=== PATIENT | male | born 1965 | race Caucasian/White ===

== ENCOUNTER → 2017-01-10 | Outpatient (CLI) | payer OTHER ==
[~2017-01-10] MED LIST: AMOXICILLIN 50500 MG PO; AUGMENTIN 875 M1 TAB PO; FLEXERIL 1010 MG/TAB PO; HYDROCODONE BIT1 T13 PO; LORTAB 5/500 501 TAB PO; MOTRIN 800800 MG/TAB PO; NAPROSYN500 MG PO; NO HOME MEDICATIONS; NORCO 325 MG-51 TAB PO; NORCO 325 MG-7.1 TAB PO; NORCO PO; PCN; PHENERGAN 25 TA25 MG PO; ULTRAM 50MG TAB50 MG PO; ZOFRAN 4MG T4 MG/TAB PO
== END ==
LOC: COL.RAD 14:29
DX: M19.011 Primary osteoarthritis, right shoulder (principal); M75.111 Incomplete rotator cuff tear or rupture of right shoulder, not specified as traumatic; M75.21 Bicipital tendinitis, right shoulder

== ENCOUNTER 2017-11-09 14:20 | Emergency (ER) | payer OTHER ==
[~2017-11-09] VITALS: Ht 195.6 cm; Wt 97.7 kg
[2017-11-09 14:24] VITALS: TEMP 97
[2017-11-09 15:18] LABS: BASO # 0.1 (0.0-0.2); BASO % 0.6 % (0.0-2.0); EOS # 0.2 (0.0-0.7); EOS % 1.3 % (0-4.0); GRAN # 9.2 (1.4-6.5); GRAN % 80.2 % (42.2-75.2); HEMATOCRIT 39.4 % (42.0-52.0); HEMOGLOBIN 13.4 g/dl (13.5-18.0); LYMPH # 1.3 (1.2-3.4); LYMPH % 11.3 % (20.0-51.0); MEAN CELL VOLUME 89 fl (80.0-100.0); MEAN CORPUSCULAR HEMOGLOBIN 30 pg (27.0-31.0); MEAN CORPUSCULAR HGB CONC 34 g/dl (33.0-37.0); MEAN PLATELET VOLUME 10.5 fl (7.4-10.4); MONO # 0.7 (0.1-0.6); MONO % 6.3 % (1.7-9.3); PLATELET COUNT 299 K/mm3 (130-400); RED BLOOD COUNT 4.41 M/mm3 (4.20-5.60); REDCELL DISTRIBUTION WIDTH-CV 13.1 % (11.5-14.5)
[2017-11-09 15:28] LABS: BILIRUBIN,TOTAL 0.7 mg/dL (0.0-1.0); CALCIUM 8.7 mg/dL (8.4-10.2); CREATININE, serum 0.72 mg/dL (0.66-1.25); POTASSIUM 4.2 mmol/L (3.4-5.0); TOTAL PROTEIN 7.2 gm/dL (6.4-8.2)
[2017-11-09 16:21] VITALS: BP 129/90; PULSE 77
== END 2017-11-09 16:26 | disposition home or self-care (01) ==
LOC: COL.ER 14:20
PROVIDERS: Physician Assistant
DX: R51 Headache (principal); Z98.890 Other specified postprocedural states
CPT/HCPCS: J1170; J1885; J2405; J7030

== ENCOUNTER 2022-03-01 18:28 | Emergency (ER) | payer SELFPAY ==
[~2022-03-01] VITALS: Ht 190.5 cm; Wt 90.9 kg
[~2022-03-01 18:28] MED LIST changes: +CEPHALEXIN500 M1 PO
[2022-03-01 18:42] VITALS: BP 111/73; TEMP 97.8
[2022-03-01 19:04] VITALS: PULSE 103
[2022-10-03] MEDS ORDERED: MOBIC 7.5MG7.5 MG PO (19:53)
[2022-10-03] MEDS ORDERED: ATARAX50 MG PO (19:53)
== END 2022-03-01 19:05 | disposition home or self-care (01) ==
LOC: COL.ER 18:28
DX: Z46.6 Encounter for fitting and adjustment of urinary device (principal); Z28.310 Unvaccinated for COVID-19

== ENCOUNTER 2023-05-15 11:57 | Emergency (ER) | payer SELFPAY ==
[~2023-05-15] VITALS: Ht 190.5 cm; Wt 90.9 kg
[~2023-05-15 11:57] MED LIST changes: +ATARAX50 MG PO; +MOBIC 7.5MG7.5 MG PO
[2023-05-15 12:12] VITALS: BP 133/81; TEMP 97.9
[2023-05-15] MEDS ORDERED: Ketorolac 60 MG/2 ML VIAL IM ONE (12:45)
[2023-05-15 12:58] VITALS: PULSE 88
[2023-05-16] MEDS ORDERED: FLEXERIL 1010 MG/TAB PO (20:43)
== END 2023-05-15 12:58 | disposition home or self-care (01) ==
LOC: COL.ER 11:57
DX: R51.9 Headache, unspecified (principal)
CPT/HCPCS: J1885

== ENCOUNTER 2023-05-16 18:14 | Emergency (ER) | payer SELFPAY ==
[~2023-05-16] VITALS: Ht 190.5 cm; Wt 90.9 kg
[2023-05-16 18:35] VITALS: TEMP 98.3
[2023-05-16] MEDS ORDERED: Ketorolac 30 MG/ML VIAL IM ONE (19:30)
[2023-05-16] MEDS ORDERED: FLEXERIL 1010 MG/TAB PO (20:43)
[2023-05-16 20:59] VITALS: BP 155/80; PULSE 92
== END 2023-05-16 20:59 | disposition home or self-care (01) ==
LOC: COL.ER 18:14
DX: S16.1XXA Strain of muscle, fascia and tendon at neck level, initial encounter (principal); S63.502A Unspecified sprain of left wrist, initial encounter; S40.012A Contusion of left shoulder, initial encounter; F17.210 Nicotine dependence, cigarettes, uncomplicated; V89.2XXA Person injured in unspecified motor-vehicle accident, traffic, initial encounter; Y92.410 Unspecified street and highway as the place of occurrence of the external cause
CPT/HCPCS: J1885; J2360